=== PATIENT | female | born 1970 | race African-American/Black ===

== ENCOUNTER 2020-04-27 08:47 | Outpatient (CLI) | payer BC, SELFPAY ==
--- NOTE | ~2020-04-27 | MM_ITS ---
EXAMINATION: MM screening hay[facility] BI w erika HISTORY: Screening TECHNIQUE: Craniocaudal and mediolateral oblique 3-D tomosynthesis images were obtained and synthetic 2-D images were generated. CAD analysis was submitted and interpreted. COMPARISON: No prior mammogram is available for comparison at this institution. BREAST PARENCHYMAL COMPOSITION: There are scattered areas of fibroglandular density. FINDINGS: There is no evidence of suspicious mass, calcification, or architectural distortion to sugg est malignancy in either breast. There has been no suspicious interval change. IMPRESSION: 1. No mammographic evidence of malignancy. 2. Recommend routine screening mammography in one year. BI-RADS Category 1: Negative Reviewed, dictated and finalized at location A.
== END 2020-04-27 08:48 | disposition home or self-care (01) ==
PROVIDERS: PCP Surgery Plastic and Reconstructive Surgery; Visit Provider Surgery Plastic and Reconstructive Surgery
DX: Z12.31 Encounter for screening mammogram for malignant neoplasm of breast (principal)
CPT/HCPCS: 77063; 77067

== ENCOUNTER 2020-05-25 00:53 | Outpatient (CLI) | payer BC, SELFPAY ==
[2020-05-25 19:21] LABS: SARS-CoV-2 RNA PCR Negative
== END 2020-05-25 00:54 | disposition home or self-care (01) ==
LOC: ANHCOVIDDT 00:53
PROVIDERS: PCP Surgery Plastic and Reconstructive Surgery; Visit Provider Surgery Plastic and Reconstructive Surgery
DX: Z01.812 Encounter for preprocedural laboratory examination (principal); Z20.828 Contact with and (suspected) exposure to other viral communicable diseases
CPT/HCPCS: 87635; C9803; U0003

== ENCOUNTER 2020-05-27 00:46 | Day surgery (SDC) | payer BC, SELFPAY ==
[2020-05-20 11:22] VITALS: BMI 36.6
[2020-05-27] VITALS (11 sets, daily range): BP systolic 113–177; BP diastolic 74–125; PULSE 45–86; RESP 12–20; TEMP 36.2–36.5; O2SAT 99–100
[2020-05-27 06:33] LABS: Urine Cotinine NEGATIVE
[2020-05-27] MEDS: LACTATED RINGERS 1,000 ML 30 ML IV CONT ×2 (06:40→11:08)
--- NOTE | 2020-05-27 06:54 | WPDHPUPDATE1 ---
History and Physical Update Update Date/Time: 05/27/20 06:54 History and Physical has been reviewed, including an updated exam of the patient. There are NO changes in the patient's condition. Risks, benefits, and alternatives have been discussed and questions answered. Patient agrees to proceed with procedure.
--- NOTE | 2020-05-27 07:08 | WPDANESEPPF ---
Anes - Initial Pre Proc Eval Procedure: Operation Date: 05/27/20 07:30 Proposed Procedures p Bilateral Breast Reduction - Brendan Johnson MD Date/Time: 05/27/20 07:08 Surgeon: Brendan Johnson MD Pre Op Diagnosis: macromastia Patient Data Age: 49 Gender: F Height: 5 ft 6 in Weight: 102.97 kg Allergies Allergy/AdvReac Type Severity Reaction Status Date / Time No Known Allergies Allergy Verified 05/20/20 11:23 Home Medications Medication Instructions Recorded Confirmed Type hydrocodone 5 mg-acetaminophen 325 1 tablet PO Q6H PRN #30 tablet 05/16/20 05/20/20 Rx mg tablet ondansetron HCl 4 mg tablet 4 mg PO Q6H PRN #30 tablet 05/16/20 05/20/20 Rx Laboratory Tests 05/27/20 06:07 Cotinine Negative Patient hx anesthesia problems: none Family hx anesthesia problems: none PMFSH Social History Social History Smoking status: Never smoker Alcohol intake: current Drinks per week: 1 Spiritual care concerns: No Anes - Eval Final PreProcedure Day of Procedure 05/27/20 07:08 Patient weight: obese Heart: regular rate and rhythm Lungs: clear to auscultation Airway: Mallampati scale class II Neurological: alert and oriented Last oral intake: >/= 8 hours ASA classification: II Emergent: no Anesthetic plan: proceed Anesthesia type and monitoring: general LMA and standard monitoring Informed Consent: The patient's anesthetic plan and its attendant risks and benefits were discussed with the patient/family/POA. Questions were solicited and answers provided to the satisfaction of the patient/family/POA.
--- NOTE | 2020-05-27 07:15 | P.OP_ITS ---
Procedure Note - Detailed Date of procedure: 05/27/20 Pre-op diagnosis: macromastia Post-op diagnosis: same Procedure performed: Bilateral breast reduction with free nipple graft Description of procedure: She is here today for bilateral breast reduction. Previously and again today the risks, benefits, alternatives were discussed in extensive detail. She states she can not be too small, she wants dramatic change. I wanted her to be very realistic about the risks involved as well as expectations. We discussed aftercare and what to monitor for. She understands we can never guarantee final breast size and there will always be asymmetry. We discussed risks, benefits, and alternatives of free nipple graft extensively again today. She knows there is risk of nipple/areola loss, she will loose sensation, she will have color change. I was very upfront and honest about the risks. Made sure answered all of her questions to her satisfaction today and consent was obtained. She was marked in the preoperative holding area with their verification. The patient was taken to the operating room placed supine on the operating table. Anesthesia was provided by anesthesiology. She was prepped and draped in a standard sterile fashion. A surgical time-out was taken. Stab incisions were made and I tumessed with a tumescent solution. I marked out the nipple-areolar complex at 42 mm. I excised the nipple/areola and kept in moist gauze. I then removed the inferior portion of the breast as well as the central keel to get shape based on preoperative planning. At this point copiously irrigated with saline solution and verified a strict hemostasis. I reapproximated the pillars using a 2-0 PDS as well as along the IMF. I tailor tacked the breast into place with gilberto. She was placed in a sitting position. I verified the nipple-areolar complex position based on preoperative markings, intraoperative measurements, and observation which were in full agreement. This nipple-areolar complex was marked at 42 mm in size. I then placed supine and de-epithelialized this. Nipple-areolar was defatted and sutured into place as free graft with 5-0 chromic. Xeroform tie over bolster was created with cotton and sutured into iqra ce with 3-0 Nylon. I closed the vertical incision with 3-0 Monocryl in the IMF with 3-0 stratafix. Then everything was closed using a running subcuticular 4-0 Monocryl followed by Steri-Strips. A dressing was placed followed by surgical bra. Patient was awoke and taken to PACU without difficulty. All instrument sponge counts were correct at the end of the case. Anesthesia: GLMA Surgeon: Brendan Johnson MD Estimated blood loss (mL): 30 Drains: No Packing: No Pathology: yes (Bilateral breast tissue) Complications: No immediate complications Condition: stable Disposition: PACU Findings: Inverted T free nipple graft breast reduction. Tissue remove: Right: 2992.3 grams Left: 2710 grams
[2020-05-27] MEDS: ceFAZolin 2 GM/D5W 50 ML 2 GM/50 ML BAG IVPB (07:26)
--- NOTE | 2020-05-27 10:41 | SUR.OPER ---
EBL:50cc
== END 2020-05-27 13:27 | disposition home or self-care (01) ==
PROVIDERS: PCP Surgery Plastic and Reconstructive Surgery; Visit Provider Surgery Plastic and Reconstructive Surgery
PROC: 0HBV0ZZ Excision of Bilateral Breast, Open Approach (ICD-10-PCS; CPT 19318; principal; 2020-05-27 07:30)
DX: N62 Hypertrophy of breast (principal); E66.9 Obesity, unspecified; Z68.37 Body mass index [BMI] 37.0-37.9, adult; Z79.899 Other long term (current) drug therapy
CPT/HCPCS: 19318; 80307; 88305; J0171; J0330; J0690; J1100; J2250; J2405; J2704; J3010; J7120

== ENCOUNTER 2020-06-06 11:40 | Outpatient (CLI) | payer BC, SELFPAY ==
--- NOTE | ~2020-06-06 | US_ITS ---
EXAMINATION: US percutaneous drain w cath DATE: 06/06/2020 14:27 INDICATION: Right breast seroma after breast reduction surgery. TECHNIQUE: The procedure including the risks, benefits, and alternatives was discussed with the patie nt. Risks discussed included bleeding and infection. Oral and written consent were obtained. A time out was performed to verify the patient's name, date of , and procedure to be performed. The pa tient was confirmed to be receiving appropriate antibiotic coverage. The skin overlying the right br east and axilla was prepped and draped in usual sterile fashion. Anesthetic was administered with 1% lidocaine subcutaneously. An 8.5 Fr catheter was inserted into the fluid collection by trocar techn [employer]. The metal stiffener and trocar needle were removed, and the pigtail tip was locked. Fluid was a spirated and sent for culture. The catheter was stitched to the skin with suture. There were no immed iate complications. FINDINGS: Ultrasound images demonstrate the catheter within the fluid collection. 10 mL dark red, opa que fluid was aspirated. IMPRESSION: 1. Successful ultrasound-guided right breast postoperative fluid collection drainage. 2. 10 mL dark red, opaque fluid was sent for aerobic and anaerobic cultures. Reviewed, dictated and finalized at location A. IMPRESSION: 1. Successful ultrasound-guided right breast postoperative fluid collection dra baugh. 2. 10 mL dark red, opaque fluid was sent for aerobic and anaerobic cultures.
== END 2020-06-06 11:41 | disposition home or self-care (01) ==
PROVIDERS: Visit Provider Surgery Plastic and Reconstructive Surgery
DX: L76.34 Postprocedural seroma of skin and subcutaneous tissue following other procedure (principal)
CPT/HCPCS: 75989; 87070; 87075; 87205

== ENCOUNTER 2021-03-22 15:44 | Outpatient (NON) | payer BC, SELFPAY | END 2021-03-22 15:45 | disposition home or self-care (01) | LOC: ANHLAB 15:46 | PROVIDERS: Visit Provider Surgery Plastic and Reconstructive Surgery | DX: L02.91 Cutaneous abscess, unspecified (principal) | CPT/HCPCS: 87070; 87075; 87077; 87186; 87205 ==